=== PATIENT | male | born 1965 | race Caucasian/White ===

== ENCOUNTER 2020-05-02 07:42 | Outpatient (CLI) | payer OTHER, SELFPAY ==
--- NOTE | 2020-05-06 16:40 | SLEEP_ITS ---
Home Sleep Test DATE OF STUDY: 05/02/2020 REASON FOR THIS STUDY: Poor quality sleep, loud snoring. HISTORY: This patient is a 54-year-old man, 5 feet 10 inches tall, weighing 174 pounds for a body mass index of 24.9. He has poor quality sleep and awakens very easily every night. This has been going on for longer than 2 years. He does not awaken from sleep feeling short of breath, rarely awakens from sleep with heartburn or belching. He occasionally snores and rarely is loud enough for others to complain about it. He does not have trouble sleeping with a cold and does not gasp for breath at night. He does not have breathing problems at night witnessed by others. He rarely sweats excessively at night or notices his heart pounding irregularly at night. He rarely falls asleep during the day. He does not fall asleep involuntarily. He rarely falls asleep while driving. He does not have loss of muscle tone with strong emotion. 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 He does not feel paralyzed on waking or falling asleep and does not have vivid dreamlike scenes upon awakening or falling asleep. He is never afraid to go to sleep. He rarely has nightmares. He occasionally remembers his dreams. He rarely has racing thoughts. He does not feel sad or depressed. He rarely has anxiety. He occasionally has muscular tension. He rarely notices parts of his body jerking. He rarely kicks at night. He occasionally has crawly achy feelings in his legs, rarely has leg pain during the night and does not have morning jaw pain. He rarely grinds his teeth during sleep. He frequently is bothered by pain during the day, occasionally is awakened by pain at night. He frequently wakes up feeling stiff in the morning with sore achy muscles and pain in the neck and spine joints. He has headaches and palpitations. Normal bedtime is 9 to 10:00 p.m. falling asleep within 20 minutes, waking 5 to 7 times at night, staying awake on average 2-3 minutes, but this does not occur every night. When he awakens he will change the position and turn over. He does not take naps. A short nap may be refreshing. Most of the time he feels good in the morning. He feels better in the afternoon than in the morning. MEDICAL COMORBIDITIES: Seasonal allergies, hypertension, hypercholesterolemia, prior history of Crohn's disease, intermittent bigeminy. MEDICATIONS: 1. Bystolic 5 mg daily. 2. Rosuvastatin 10 mg daily. HABITS: Never smoked tobacco. Caffeine, 2 cups a day. Alcohol, 2 servings a day. DESCRIPTION OF THE STUDY: On the [place] Sleepiness Scale, his score is 12, elevated. This was conducted as an unattended type 3 portable home sleep test with 4 channel monitoring including respiratory effort channel, snoring channel, oxygen saturation channel, and heart rate channel. This study was scored using [facility] guidelines. The duration of the study was 7 hours 45 minutes. The apnea-hypopnea index is 10. This is elevated. Oxygen desaturation index is 9.4. Lowest desaturation is 84%. He had 26 apneas. The majority, 22 apneas were central, 85% of the total. He had 4 obstructive apneas, which comprised 15% of the total. He had 54 hypopneas, 113 snoring events and 73 desaturations with 2 minutes spent below 88%. Heart rate ranged from 45 to 78. IMPRESSION: This home sleep test shows evidence of at least mild sleep-disordered breathing primarily central events G47.33. Given his comorbidity of hypertension, he is a candidate for a CPAP titration. I would recommend again an auto PAP, if he is not a candidate due to having 85% of his apneas being central. Auto PAP can worsen central apneas. He should not drive until daytime sleepiness reso
== END 2020-05-02 07:43 | disposition home or self-care (01) ==
LOC: ANHCSM 07:43
PROVIDERS: Visit Provider Internal Medicine
DX: G47.33 Obstructive sleep apnea (adult) (pediatric) (principal)
CPT/HCPCS: 95806

== ENCOUNTER 2020-08-31 01:24 | Outpatient (CLI) | payer OTHER, SELFPAY ==
[2020-08-31 20:15] LABS: SARS-CoV-2 RNA PCR Negative
== END 2020-08-31 01:25 | disposition home or self-care (01) ==
LOC: ANHCOVIDDT 01:24
PROVIDERS: Visit Provider Internal Medicine Critical Care Medicine
DX: Z20.828 Contact with and (suspected) exposure to other viral communicable diseases (principal)
CPT/HCPCS: 87635; C9803; U0003

== ENCOUNTER 2020-09-03 08:28 | Outpatient (CLI) | payer OTHER, SELFPAY ==
--- NOTE | 2020-10-16 18:16 | WPDSLEEPSTUD ---
Sleep Study Date of Study: 09/03/20 Ordering Provider: Mere Aponte MD; primary care doctor is Javier Gomez Interpreting Physician: Mere Aponte MD Sleep Study Type: CPAP Titration Height: 1.78 m Weight: 80.739 kg Body Mass Index: 25.5 [place]: 12 Reason for Sleep Study HST with mild ANGELIC Sleep History Right for Wm is a 54-year-old male with a prior home sleep test 05/02/2020 that showed an apnea-hypopnea index of 10 with a minimum desaturation of 84%. The majority of his apneas were centrals, 85% of the total. He presents now for a CPAP titration as he has hypertension as a comorbidity. He has poor quality sleep and awakens very easily every night. This has been oing on for longer than 2 years. He does not awaken from sleep feeling short of breath, rarely awakens from sleep with heartburn or belching. He occasionally snores and rarely is loud enough for others to complain about it. He does not have trouble sleeping with a cold and does not gasp for breath at night. He does not have breathing problems at night witnessed by others. He rarely sweats excessively at night or notices his heart pounding irregularly at night. He rarely falls asleep during the day. He does not fall asleep involuntarily. He rarely falls asleep while driving. He does not have loss of muscle tone with strong emotion. 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 He does not feel paralyzed on waking or falling asleep and does not have vivid dreamlike scenes upon awakening or falling asleep. He is never afraid to go to sleep. He rarely has nightmares. He occasionally remembers his dreams. He rarely has racing thoughts. He does not feel sad or depressed. He rarely has anxiety. He occasionally has muscular tension. He rarely notices parts of his body jerking. He rarely kicks at night. He occasionally has crawly achy feelings in his legs, rarely has leg pain during the night and does not have morning jaw pain. He rarely grinds his teeth during sleep. He frequently is bothered by pain during the day, occasionally is awakened by pain at night. He frequently wakes up feeling stiff in the morning with sore achy muscles and pain in the neck and spine joints. He has headaches and palpitations. Normal bedtime is 9 to 10:00 p.m. falling asleep within 20 minutes, waking 5 to 7 times at night, staying awake on average 2-3 minutes, but this does not occur every night. When he awakens he will change the position and turn over. He does not take naps. A short nap may be refreshing. Most of the time he feels good in the morning. He feels better in the afternoon than in the morning. [facility] Past Medical History Medical History (Updated 10/16/20 @ 19:54 by Mere Aponte MD) Bigeminy Crohn's disease Hyperlipidemia Hypertension Obstructive sleep apnea Seasonal allergies Social History Social History (Updated 10/16/20 @ 19:10 by Mere Aponte MD) Smoking status: Never smoker Alcohol intake: current Alcohol use details: occasional Medications Medications: 1. Bystolic 5 mg daily. 2. Rosuvastatin 10 mg daily. 3. Baby aspirin 81 mg daily. Sleep Procedure This test was performed using the iHeart multiple channel system including EOG, EEG, submental EMG, EKG, nasal and oral airflow using thermistors and nasal pressure sensors, chest and abdominal belts for body position data, and pulse oximetry. Video monitoring was also performed. The study was scored using [facility] guidelines. The patient was started on CPAP using large Airfit P10 nasal pillows and heated humidifier. CPAP was started at 5 cm and titrated to 7 cm. Supine REM was achieved at 7 cm. At a pressure of 7 cm, the patient spent 2 hours 12 minutes in bed, 37 minutes in REM, 1 hour 18 minutes in non-REM. He had 1 obstructive apnea for an AHI of 0.5. Lowest saturation was 93%. Sleep efficiency was 87%. This was the optimal pressure
[2020-10-16 20:03] VITALS: BMI 25.5
== END 2020-09-03 08:29 | disposition home or self-care (01) ==
LOC: ANHCSM 08:29
PROVIDERS: Visit Provider Internal Medicine Critical Care Medicine
DX: G47.33 Obstructive sleep apnea (adult) (pediatric) (principal); K50.90 Crohn's disease, unspecified, without complications; E78.5 Hyperlipidemia, unspecified; I10 Essential (primary) hypertension; J30.2 Other seasonal allergic rhinitis
CPT/HCPCS: 95811

== ENCOUNTER 2023-07-02 09:34 | Outpatient (CLI) | payer OTHER, SELFPAY ==
--- NOTE | ~2023-07-02 | XR_ITS ---
EXAMINATION: XR sacroiliac joints min 3V INDICATION: Low back pain TECHNIQUE: Three views of the sacroiliac joints are obtained. COMPARISON: None available FINDINGS: Bone alignment is normal. There is no fracture. No abnormal erosion or sclerosis of the sac roiliac joints. A transitional S1 segment is noted. IMPRESSION: 1. No acute osseous abnormality. Reviewed, dictated and finalized at location B.
--- NOTE | ~2023-07-02 | XR_ITS ---
AP and lateral views of the bilateral hips Clinical history: Pain Findings: No acute fracture or dislocation is seen. Osseous alignment is anatomic. Bilateral hip and SI joint spaces are preserved. Soft tissues are unremarkable. Impression: No significant abnormality is seen. Reviewed, dictated and finalized at location . Impression: No significant abnormality is seen.
--- NOTE | ~2023-07-02 | XR_ITS ---
EXAMINATION:[id number] DATE: 07/02/2023 10:39 INDICATION: Neck pain TECHNIQUE: AP, lateral, lateral swimmers and odontoid views of the cervical spine are provided. COMPARISON: None FINDINGS: Alignment is normal. The odontoid process is intact. No fracture is identified. The vertebr al body heights are maintained. There is severe loss of intervertebral disc space height at C4-5. Sma ll degenerative osteophytes project from the anterior endplates of multiple vertebral bodies. There i s moderate facet and uncovertebral joint osteoarthritis at Prevertebral soft tissues are normal. IMPRESSION: 1. Moderate cervical spondylosis at C4-5 without acute findings. Reviewed, dictated and finalized at location B.
--- NOTE | ~2023-07-02 | XR_ITS ---
Lumbosacral Spine: AP and lateral views Clinical History: Pain Findings: The normal lordotic curve is maintained. The vertebral bodies and posterior elements are i ntact. There is minimal degenerative disc change, and mild facet arthropathy. The sacroiliac joints are normally outlined. Impression: Mild degenerative spondylosis. Reviewed, dictated and finalized at location . Impression: Mild degenerative spondylosis.
== END 2023-07-02 09:35 | disposition home or self-care (01) ==
LOC: CHSIMG 09:35
PROVIDERS: PCP Internal Medicine; Visit Provider Internal Medicine
DX: M54.50 Low back pain, unspecified (principal); M25.552 Pain in left hip; M25.551 Pain in right hip; M43.02 Spondylolysis, cervical region; M43.06 Spondylolysis, lumbar region
CPT/HCPCS: 72040; 72100; 72202; 73521

== ENCOUNTER 2024-03-06 09:58 | Outpatient (CLI) | payer OTHER, SELFPAY ==
--- NOTE | 2024-03-06 10:05 | EST_ITS ---
Patient Info Name: Robb Juarez Age: 58 years : 1965 Gender: Male Ht: 70 in Wt: 193 lbs BSA: 2.10 m2 HR: 61 bpm BP: 144 / 83 mmHg Heart Rhythm: Sinus Rhythm Technical Quality: Good Exam Date: 03/06/2024 10:23 AM Exam Location: Echo Lab Patient Status: Outpatient Admit Date: 03/06/2024 Staff Ordering Physician: Larry Gomez MD Attending Provider: Larry Gomez MD Exam Type: CA stress test treadmill Study Info A treadmill exercise stress test was performed. History/Risk Factors Hypertension: Yes Dyslipidemia: Yes Family History: Coronary Artery Disease History/Risk Factors Arrhythmia. Summary 1. 1. Negative Andre exercise stress test for ischemic ST changes by ECG criteria. 2. 2. Good functional capacity, achieving 12 METs of workload. 3. 3. Baseline hypertension with hypertensive response to exercise. 4. 4. Appropriate HR response to exercise. 5. 5. Appropriate HR recovery at 1 minute post exercise. 6. 6. No imaging with stress testing. 7. 7. Patient informed of the above results. Protocol: Nadre Stress ECG Details Stage: REST Duration (min): 0 min : 50 sec Speed (mph): 0.0 Grade (%): 0 HR (bpm): 60 SBP (mmHg): 144 DBP (mmHg): 83 METS: --- Stage: REST Duration (min): 3 min : 39 sec Speed (mph): 0.0 Grade (%): 0 HR (bpm): 63 SBP (mmHg): 144 DBP (mmHg): 83 METS: --- Stage: STAGE 1 Duration (min): 1 min : 0 sec Speed (mph): 1.7 Grade (%): 10 HR (bpm): 81 SBP (mmHg): 144 DBP (mmHg): 83 METS: --- Stage: STAGE 1 Duration (min): 2 min : 0 sec Speed (mph): 1.7 Grade (%): 10 HR (bpm): 85 SBP (mmHg): 144 DBP (mmHg): 83 METS: --- Stage: STAGE 1 Duration (min): 3 min : 0 sec Speed (mph): 1.7 Grade (%): 10 HR (bpm): 89 SBP (mmHg): 153 DBP (mmHg): 71 METS: --- Stage: STAGE 2 Duration (min): 1 min : 0 sec Speed (mph): 2.5 Grade (%): 12 HR (bpm): 94 SBP (mmHg): 153 DBP (mmHg): 71 METS: --- Stage: STAGE 2 Duration (min): 2 min : 0 sec Speed (mph): 2.5 Grade (%): 12 HR (bpm): 101 SBP (mmHg): 153 DBP (mmHg): 71 METS: --- Stage: STAGE 2 Duration (min): 3 min : 0 sec Speed (mph): 2.5 Grade (%): 12 HR (bpm): 106 SBP (mmHg): 164 DBP (mmHg): 78 METS: --- Stage: STAGE 3 Duration (min): 1 min : 0 sec Speed (mph): 3.4 Grade (%): 14 HR (bpm): 116 SBP (mmHg): 164 DBP (mmHg): 78 METS: --- Stage: STAGE 3 Duration (min): 2 min : 0 sec Speed (mph): 3.4 Grade (%): 14 HR (bpm): 124 SBP (mmHg): 164 DBP (mmHg): 78 METS: --- Stage: STAGE 3 Duration (min): 3 min : 0 sec Speed (mph): 3.4 Grade (%): 14 HR (bpm): 127 SBP (mmHg): 207 DBP (mmHg): 82 METS: --- Stage: STAGE 4 Duration (min): 1 min : 0 sec Speed (mph): 4.2 Grade (%): 16 HR (bpm): 140 SBP (mmHg): 207 DBP (mmHg): 82 METS: --- Stage: STAGE 4 Duration (min):
== END 2024-03-06 09:59 | disposition home or self-care (01) ==
LOC: CHSCARD 10:00
PROVIDERS: PCP Internal Medicine; Visit Provider Internal Medicine
DX: I10 Essential (primary) hypertension (principal); E78.00 Pure hypercholesterolemia, unspecified; I49.3 Ventricular premature depolarization
CPT/HCPCS: 93017

== ENCOUNTER 2024-04-06 13:20 | Outpatient (CLI) | payer OTHER, SELFPAY ==
--- NOTE | 2024-04-06 13:27 | ECHO_ITS ---
Patient Info Name: Robb Juarez Age: 58 years : 1965 Gender: Male Ht: 70 in Wt: 190 lbs BSA: 2.08 m2 HR: 57 bpm BP: 158 / 77 mmHg Technical Quality: Good Exam Date: 04/06/2024 1:17 PM Exam Location: [facility] Patient Status: Outpatient Admit Date: 04/06/2024 Staff Ordering Physician: Larry Gomez MD Game Attendant: Boni Randolph RDCS Attending Provider: Larry Gomez MD Referring Physician: Jason ESTRELLA; Exam Type: CA echo doppler color flow Study Info Indications - HTN Complete two-dimensional, color flow and Doppler transthoracic echocardiogram is performed. History/Risk Factors Hypertension: Yes Dyslipidemia: Yes Family History: Coronary Artery Disease Summary 1. Complete two-dimensional, color flow and Doppler transthoracic echocardiogram is performed. 2. Left ventricular chamber dimension is normal. 3. Left ventricular systolic function is normal, estimated at 60-65%. 4. The left ventricular diastolic function is normal. 5. E/e' 6 is not elevated. 6. Right atrial chamber dimension is mildly enlarged. 7. There is mild aortic valve sclerosis. 8. There is mild mitral valve regurgitation. 9. There is trace tricuspid valve regurgitation. 10. No pulmonary hypertension, estimated pulmonary arterial systolic pressure is 25 mmHg. Left Ventricle E/e' 6 is not elevated. Left ventricular chamber dimension is normal. Left ventricular systolic function is normal, estimated at 60-65%. The left ventricular diastolic function is normal. Right Ventricle Right ventricular systolic function is normal and with normal TAPSE 2.8 cm. Right ventricular chamber dimension is normal. Left Atria Left atrial chamber dimension is normal. Right Atria Right atrial chamber dimension is mildly enlarged. Aortic Valve The aortic valve is trileaflet. There is mild aortic valve sclerosis. There is no aortic valve stenosis. There is no aortic valve regurgitation. Pulmonic Valve There is no pulmonic regurgitation. Mitral Valve There is no mitral valve stenosis. There is mild mitral valve regurgitation. Tricuspid Valve There is trace tricuspid valve regurgitation. No pulmonary hypertension, estimated pulmonary arterial systolic pressure is 25 mmHg. Pericardium/Pleural There is no pericardial effusion. Inferior Vena Cava Normal inferior vena cava with >50% collapse upon inspiration consistent with normal right atrial pressure, 5 mmHg. Aorta The aortic root size at the sinus of Valsalva is normal. Left Ventricular Outflow Tract Name Value Normal LVOT 2D LVOT Diameter 2.1 cm LVOT Doppler LVOT Peak Velocity 116 cm/s LVOT Peak Gradient 5 mmHg LVOT Mean Gradient 3 mmHg LVOT VTI 26 cm LVOT VTI/AV VTI Ratio 0.6 LVOT Stroke Volume 91 ml Pulmonic Valve Name Value Normal PV Doppler
== END 2024-04-06 13:21 | disposition home or self-care (01) ==
LOC: CHSIMG 13:22
PROVIDERS: PCP Internal Medicine; Visit Provider Internal Medicine
DX: I10 Essential (primary) hypertension (principal); E78.5 Hyperlipidemia, unspecified; I08.0 Rheumatic disorders of both mitral and aortic valves
CPT/HCPCS: 93306